=== PATIENT | male | born 1975 | race Caucasian/White ===

== ENCOUNTER 2017-03-11 21:13 | Emergency (ER) | payer OTHER ==
[2017-03-11] MEDS ORDERED: Amoxicillin CAP* 500 MG PO ONE (21:36)
--- NOTE | 2017-03-11 21:36 | UC ---
[facility] Dental HPI - HPI Summary HPI Summary: left lower dental pain with foul taste in mouth, and facial swelling - History of Current Complaint Chief Complaint: UCDentalProblem Stated Complaint: DENTAL PAIN Time Seen by Provider: 03/11/17 21:28 Hx Obtained From: Patient Onset/Duration: Sudden Onset, Lasting Days, Still Present, Worse Since - today Severity: Moderate Pain Intensity: 7 Pain Scale Used: 0-10 Numeric Aggravating: Chewing Alleviating: Nothing Related History: Previous Dental Care on Same Tooth, Discharge, Swelling - Allergies/Home Medications Allergies/Adverse Reactions: Allergies Allergy/AdvReac Type Severity Reaction Status Date / Time Acetaminophen Allergy Swelling Verified 03/11/17 21:26 Of Face,Lips,& Throat Hydromorphone [From Dilaudid] Allergy Hives Verified 03/11/17 21:26 Pseudoephedrine Allergy See Comment Verified 03/11/17 21:26 [From Sudafed] IV contrast Allergy See Comment Uncoded 03/11/17 21:26 PMH/Surg Hx/FS Hx/Imm Hx Previously Healthy: Yes GI/ History Of: Reports: Kidney Stones - Surgical History Surgical History: Yes Surgery Procedure, Year, and Place: appy. umbilical hernia repair. x2 lithotripsy - Family History Known Family History: Positive: None Family History: no cardiovascular issues in family lineage - Social History Occupation: Employed Full-time - local combination truck driver Lives: With Family Alcohol Use: Rare Substance Use Type: None Smoking Status (MU): Heavy Every Day Tobacco Smoker Amount Used/How Often: 1 ppd Have You Smoked in the Last Year: Yes Cessation Counseling: Counseled 3+Min - 10 Min Review of Systems Constitutional: Negative Skin: Negative Eyes: Negative ENT: Dental Pain Respiratory: Negative Cardiovascular: Negative Gastrointestinal: Negative Genitourinary: Negative Motor: Negative Neurovascular: Negative Musculoskeletal: Negative Neurological: Negative Psychological: Negative All Other Systems Reviewed And Are Negative: Yes Physical Exam Triage Information Reviewed: Yes Appearance: Well-Appearing, No Pain Distress, Well-Nourished Vital Signs: Initial Vital Signs Temp 98.0 F 03/11/17 21:22 Pulse 75 03/11/17 21:22 Resp 14 03/11/17 21:22 BP 130/70 03/11/17 21:22 Pulse Ox 100 03/11/17 21:22 Vital Signs Reviewed: Yes Eye Exam: Normal Eyes: Positive: Conjunctiva Clear ENT Exam: Normal ENT: Positive: Normal ENT inspection, Hearing grossly normal, Pharynx normal, TMs normal. Negative: Nasal congestion, Nasal drainage, Tonsillar swelling, Tonsillar exudate, Trismus, Muffled/hoarse voice Dental Exam: Other Dental: Positive: Gross Decay/Caries @, Abscess @ - left lower gum Neck exam: Normal Neck: Positive: Supple, Nontender Respiratory Exam: Normal Respiratory: Positive: Chest non-tender, Lungs clear, Normal breath sounds, No respiratory distress Cardiovascular Exam: Normal Cardiovascular: Positive: RRR, No Murmur, Pulses Normal, Brisk Capillary Refill Musculoskeletal Exam: Normal Musculoskeletal: Positive: Strength Intact, ROM Intact, No Edema Neurological Exam: Normal Neurological: Positive: Alert, Muscle Tone Normal Psychological Exam: Normal Skin Exam: Normal Dental Complaint Course/Dx - Course Course Of Treatment: amoxicillin, vicoprofen, nicotine cesation education, dental follow up - Differential Dx/Diagnosis Differential Diagnosis/Dx: Dental Caries, Fractured Tooth, Peridontic Disease, Peritonsillar Abcess Provider Diagnoses: Dental Caries, dental abscess, nicotine dependant Discharge - Discharge Plan Condition: Stable Disposition: HOME Prescriptions: Amoxicillin CAP* [Amoxicillin 500 MG CAP*] 500 mg PO TID #30 cap Hydrocodone-Ibuprofen [Hydrocodone/Ibuprofen 10-200 mg] 0.5 - 1 tab PO Q6H PRN # 5 tab MDD 4 PRN Reason: pain Patient Education Materials: How to Stop Smoking (ED), Dental Abscess (ED), Toothache (ED) Referrals: [facility] [Outside] - If Needed Additional Instructions: Follow up with dentist this week! See the dental referral list we provided to you for assistance in finding a provider
== END 2017-03-11 21:58 | disposition home or self-care (01) ==
LOC: UCCORT 21:13
DX: K02.9 Dental caries, unspecified (principal); K04.7 Periapical abscess without sinus; F17.210 Nicotine dependence, cigarettes, uncomplicated
CPT/HCPCS: 99202; A9270-GY; G0463